=== PATIENT | male | born 1950 | race Caucasian/White ===

== ENCOUNTER 2020-08-25 11:53 | Inpatient (IN) | payer BC ==
[~2020-08-25] VITALS: Ht 182.9 cm; Wt 78.0 kg
--- NOTE | ~2020-08-25 | EMS ---
[address] [address] EMS Patient Care Report Name: EUGENIA AYON Room #: 447-P ADM IN M.R.#: [id number] Admission: 08/25/20 Attend Phys: Alexander Delgado MD Discharge: Date of : 46 Report #: [id number] THIS REPORT FOR: //name// Report Transmitted: 08/25/2020 18:56 EMS Care Summary [place], [place]/[facility] Incident [id number] @ 08/25/2020 11:26 Incident Location [address] [place], [place] [address] Patient EUGENIA AYON Male, 69 Years 1950 Patient Address [address] [place] [address] Patient History Diabetes,Hypertension (HTN),Hyperlipidemia,Emphysema,Sepsis,Sleep Apnea,Cellulitis, Patient Allergies No known allergies, Patient Medications Clopidogrel, Atorvastatin, Acetaminophen, Enoxaparin, Trulicity, Losartan, Senna, Humalog, Insulin, Metformin, Browder, Chief Complaint WOUND INFECTION Disposition Transported No Lights/[place] Dispatch Reason Sick Person Transported To [facility] Narrative M36 DISPATCHED ON A SICK PERSON. M36 ARRIVED TO SNF TO FIND PT SEATED [address] [address] EMS Patient Care Report Name: EUGENIA AYON Room #: 447-P ADM IN M.Shari.#: [id number] Admission: 08/25/20 Attend Phys: Alexander Delgado MD Discharge: Date of : 46 Report #: [id number] IN RECLINER IN ROOM WITH PHYSICAL RN CASE MANAGEMENT AT PT SIDE. PT STATED WOUND INFECTION CHIEF COMPLAINT. [place] STAFF STATED PT SEEN BY WOUND DOCTOR THIS MORNING AND "BEING SENT OUT FOR WOUND DEBRIDEMENT." PT ASSISTED TO STAND AND PIVOT TO STRETCHER. PT SECURED WITH SEATBELTS. PT DENIED N/V/D, SHORTNESS OF BREATH, FEVER AND COUGH. PT STATED "PAIN IS AT A ZERO RIGHT NOW, BUT WHEN DOCTOR MESSES WITH IT, THE PAIN IS VERY HIGH." PT VS MONITORED EN ROUTE. PT REPORT GIVEN. PT SCOOTED SELF ONTO HOSPITAL BED. PT CARE AND BELONGINGS TRANSFERRED TO ER STAFF AT [facility] WITHOUT INCIDENT. M36 PLACED BACK IN SERVICE. Initial Vitals @11:44P: 96,R: 18,BP: 133/67,Pain: 0/10,GCS: 15,CO: 2,SpO2: 98,Revised Trauma: 12, @11:47P: 96,R: 18,BP: 122/74,Pain: 0/10,GCS: 15,SpO2: 99,Revised Trauma: 12, Assessments @11:39MENTAL:Person Oriented,Time Oriented,Place Oriented,Event Oriented,SKIN:HEENT:LUNG SOUNDS:ABDOMEN:PELVIS//GI:EXTREMITIES:Left Leg: Edema,Left Leg: Other,PULSE:Radial: 2+ Normal,NEURO:Other, Impression Skin infection Procedures @11:39ALS AssessmentResponse: UnchangedSucceeded Timeline 11:25,Call Received 11:25,Dispatch Notified 11:26,Dispatched 11:27,En Route 11:36,On Scene 11:38,At Patient 11:39,ALS Assessment,Response: UnchangedSucceeded, 11:44,BP: 133/67 M,PULSE: 96,RR: 18 R,SPO2: 98 Ox,ETCO2: ,BG: ,PAIN: 0,GCS: 15, 11:46,Depart Scene 11:47,BP: 122/74 M,PULSE: 96,RR: 18 R,SPO2: 99 Ox,ETCO2: ,BG: ,PAIN: 0,GCS: 15, 11:48,At Destination 12:03,Call Closed Disclaimer v1.1 Copyright 2020 [employer] This EMS Care Summary contains data elements from the applicable legal record (which may be displayed differently). It is designed to provide pertinent information for the following purposes: continuity of care, clinical quality, [address] [address] EMS Patient Care Report Name: EUGENIA AYON Room #: 447-P ADM IN [facility].#: [id number] Admission: 08/25/20 Attend Phys: Alexander Delgado MD Discharge: Date of : 46 Report #: [id number] and state data reporting. The complete legal record is available to ED staff and administrators of the receiving hospital in [employer] Patient Tracker. All data is provided "as is."
[2020-08-25 11:54] VITALS: BP 155/54
[2020-08-25 12:32] LABS: ABSOLUTE NEUTROPHILS 6.4 thou/uL (1.4-8.2); BASOPHILS 0.7 % (0.0-2.0); EOSINOPHILS 1.2 % (0.0-3.0); HEMATOCRIT 37.2 % (42.0-52.0); HEMOGLOBIN 12.3 gm/dL (14.0-18.0); LYMPHOCYTES 13.9 % (24.0-44.0); MCH 31.9 pg (26.0-34.0); MCV 96.6 fL (80.0-100.0); MONOCYTES 6.1 % (1.0-8.0); PLATELET COUNT 398 thou/uL (150-400); POLYS 78.1 % (36.0-66.0); RBC 3.85 mil/uL (4.50-6.00); RDW 15.8 % (10.5-14.5); WBC 8.2 thou/uL (4.0-11.0)
[2020-08-25 12:36] LABS: CALCIUM 8.6 mg/dL (8.5-10.1); CREATININE 0.9 mg/dL (0.7-1.3); POTASSIUM 3.9 mmol/L (3.5-5.1)
[2020-08-25 12:43] LABS: ALBUMIN 2.6 g/dL (3.4-5.0); TOTAL BILIRUBIN 0.4 mg/dL (0.2-1.0)
[2020-08-25 14:54] VITALS: BP 134/75
--- NOTE | 2020-08-25 15:00 | NUR ---
REPORT ATTEMPTED. NURSE UNAVAILABLE
[2020-08-25 15:20] VITALS: BP 129/73
--- NOTE | 2020-08-25 16:26 | EKG ---
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
--- NOTE | 2020-08-25 18:51 | NUR ---
ASSUMED CARE OF PT AT 1555 THIS AFTERNOON FROM THE ER. PT WAS ADMITTED FOR DEBRISMENT OF THE BIG TOE AND HJEAL OF THE RIGHT FOOT. PT IS A/OX3 SLIGHTLY CONFUSED AND HAS SPEACH ESPHAGIA. IV IN RIGHT FA WITH VANCO RUNNING AT 250ML/HR. DARK AREAS NOTED ON LARGE TOE AND EXTERIOR HEAL. OTHERWISE SKIN IS INTACT, W/D/P CR<3SEC. ASSESSMENT OTHERWISE UNREMARKABLE. CALL LIGHT AND OTHER NEEDS PLACED WITHIN REACH,.
[2020-08-25 20:11] VITALS: BP 147/82
--- NOTE | 2020-08-26 05:24 | NUR ---
ASSUMED PT CARE AT 1900.ADMISSION ASSESSMNET COMPLETED.PT WITH LANCE HEEL WOUND,R GREAT TOE WOUND AND SUTURES TO HIS L PLANTAR FOOT.COVID NEGATIVE.PT CONT ON IV ABX.PT ALERT,CONFUSED AND COPERATIVE.URINAL AT BEDSIDE.REDNESS TO BUTTOCK.PT AHPASIC,NEEDS EXTRA TIME TO GET HIS WORDS OUT.CALL LIGHT WITHIN REACH.
[2020-08-26 07:30] VITALS: BP 157/93
--- NOTE | 2020-08-26 09:03 | NUR ---
ASSESSMENT: CM REVIEWED CHART AND SPOKE WITH PATIENT AT THE BEDSIDE. PT IS ADMITTED DUE TO FOOT WOUND. PT IS FROM [facility] AND WAS BEING SEEN BY WOUND CARE. 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 PT IS NOW ADMITTED DUE TO CONCERNS OF ULCERATON OF HEEL AND POSSIBLE CELLULITIS. PT IS BEING SEEN BY IR AND RECOMMENDING ANGIOGRAM. CM FAXED UPDATED CLINICAL TO [facility] AND UPDATED LIASADA PRICE. CM ALSO SPOKE WITH PATIENTS SISTER GAVI[place]. SHE REPORTS PT DOES NOT CURRENTLY HAVE A DPOA. PT IS CURRENTLY ON IV ANBX AND WOUND CARE HAS BEEN CONSULTED WELL GENERAL SURGERY. CM WILL CONTINUE TO FOLLOW TO ASSIST NEEDED.
--- NOTE | 2020-08-26 14:02 | NUR ---
Assumed pt care at 7am.Pt in bed resting. Assessment completed.vss.Pt wanted to eat and drink but has to be npo for procedure scheduled for this afternoon. Light breakfast given. Received call from pt family and updates given.At 1400, pt left per bed to radiology for arteriogram and will possibly transfer to ccu after procedure.
[2020-08-26 16:51] VITALS: BP 137/74
--- NOTE | 2020-08-26 17:13 | NUR ---
PT ARRIVED ON UNIT AT 1700, PT IS DROWSY FROM SURGERY AND RESTING COMFORTABLY
[2020-08-26 19:00] VITALS: BP 161/97
[2020-08-26 19:28] VITALS: BP 151/94
[2020-08-26 19:30] VITALS: BP 146/85
[2020-08-26] MEDS ORDERED: COZAAR 50 MG TA50 MG PO (22:51)
[2020-08-26] MEDS ORDERED: PLAVIX 75 MG TA75 MG PO (22:52)
[2020-08-26] MEDS ORDERED: ATORVASTATIN CA80 MG PO (22:52)
[2020-08-26] MEDS ORDERED: TRULICITY1.5 MG/0.5 SUBQ (22:54)
[2020-08-26] MEDS ORDERED: METFORMIN HCL500 M3 PO (22:56)
[2020-08-26] MEDS ORDERED: JARDIANCE25 MG PO (22:59)
[2020-08-26] MEDS ORDERED: TYLENOL325 M1 PO (23:04)
[2020-08-26] MEDS ORDERED: HYDROCODON-ACE1 EAC7 PO (23:05)
[2020-08-26] MEDS ORDERED: SENNA PLUS TAB1 EACH PO (23:06)
[2020-08-26] MEDS ORDERED: MIRALAX119 GM PO (23:06)
[2020-08-27] VITALS (7 sets, daily range): BP systolic 129–158; BP diastolic 71–90
--- NOTE | 2020-08-27 00:03 | NUR ---
ASSUMED PT CARE AT CHNAGE OF SHIFT, AWAKE, ALERT AND ORIENTED, SCREAMING IN PAIN TO THE R FOOT, TRAMADOL GIVEN WITH PAIN RELIEF, L GROIN SITE CDI, NO HEMATOMA, ASSESSMENTS CHARTED, BP ELEVATED BEGINNING OF SHIFT D/T PAIN, BP STABLE NOW, OTHER VSS, NO NEEDS AT THIS TIME WILL CONT TO MONITOR AND FOLLOW POC
--- NOTE | 2020-08-27 14:30 | NUR ---
ASSESSMENT CHARTED. PT ALERT AND ORIENTED. PLEASANT AND COOPERATIVE WITH CARES. PT REPORT THAT HE HAD HIS CELLPHONE AND ELECTRIC SHAVER WHEN HE WAS IN [facility] BEFORE BEING TRANSFERED TO ROOM 208. [place] HEAD OF QUALITY REPORTED THAT THEY LOOKED IN THE ROOM FOR THE TWO ITEMS AND COULD NOT FIND IT. SECURITY, 2 [place] [employer] AND SAFETY MANAGER, RUG DYER HELPER, AND CUSTOMER ACCOUNT EXECUTIVE NOTIFIED. PT NPO AFTER MIDNIGHT FOR POSSIBLE CATH IN AM. PRN PAIN MED GIVEN WITH PATIAL RELIEF.
--- NOTE | 2020-08-27 15:05 | NUR ---
ON-GOING ASSESSMENT: CM REVIEWED CHART AND SPOKE WITH ATTENDING. PT IS TO HAVE REPEAT ANGIO TOMORROW WITH POSSIBLE STENT PLACEMENT. PT REMAINS ON IV ANBX. 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 CM WILL CONTINUE TO FOLLOW TO ASSIST NEEDED.
[2020-08-28] VITALS (10 sets, daily range): BP systolic 133–152; BP diastolic 73–98
--- NOTE | 2020-08-28 04:35 | NUR ---
SLEPT MOST OF SHIFT. MOVES AROUND IN BED BYSELF. DENIES COMPLAINTS OF PAIN OR SHORTNESS OF AIR. WORKING ON GOALS AND PLAN OF CARE FOR NOC. PROGRESSING TOWARDS GOALS FOR PROCEDURE THIS AM. MAINTAIN SAFE ENVIRONMENT. CONTINUE TO ASSES CLOSELY.
[2020-08-28 09:00] LABS: HEMATOCRIT 37.8 % (42.0-52.0); HEMOGLOBIN 12.7 gm/dL (14.0-18.0); MCH 32.2 pg (26.0-34.0); MCHC 33.5 g/dL (28.0-37.0); MCV 96.2 fL (80.0-100.0); RBC 3.93 mil/uL (4.50-6.00); RDW 15.9 % (10.5-14.5); WBC 9.1 thou/uL (4.0-11.0)
[2020-08-28 09:12] LABS: CALCIUM 8.6 mg/dL (8.5-10.1); CREATININE 0.7 mg/dL (0.7-1.3); POTASSIUM 4.1 mmol/L (3.5-5.1)
--- NOTE | 2020-08-28 17:08 | NUR ---
[facility] can accept the pt back and has ins auth for SNF stay. The pt has 9 days remaining with his [employer] plan. Should he be dc ready this weekend, their liason can be reached at [phone] to make the arrangements. He will need a chart copy and report called to [phone], fax #[phone].
--- NOTE | 2020-08-28 18:02 | NUR ---
ASSESSMENT CHARTED. PLEASANT AND COOPERATIVE WITH CARES. HAD ANGIOGRAM AND STENT PLACED TODAY. PRN PAIN MED GIVEN WITH PARTIAL RELIEF. RIGHT GROIN INCISION C/D/I. NO HEMATOMA NOTED. SISTR UPDATED ON PT'S PROGRESS. NO CONCERNS AT THIS TIME.
[2020-08-29 00:01] VITALS: BP 150/81
--- NOTE | 2020-08-29 04:01 | NUR ---
SLEPT MOST OF SHIFT. POST CATH BILATERAL DRESSINGS C/D/I, NO HEMOTOMA OR BLEEDING. WORKING ON GOALS AND PLAN OF CARE FOR NOC. DENIES COMPLAINTS OF PAIN AT THIS TIME. CONTINUE TO ASSES CLOSELY.
[2020-08-29 04:12] VITALS: BP 139/75
[2020-08-29 04:56] LABS: HEMATOCRIT 37.2 % (42.0-52.0); HEMOGLOBIN 12.5 gm/dL (14.0-18.0); MCH 32.3 pg (26.0-34.0); MCHC 33.5 g/dL (28.0-37.0); MCV 96.6 fL (80.0-100.0); RBC 3.85 mil/uL (4.50-6.00); RDW 16.4 % (10.5-14.5); WBC 10.9 thou/uL (4.0-11.0)
[2020-08-29 04:59] LABS: CALCIUM 8.2 mg/dL (8.5-10.1); CREATININE 0.7 mg/dL (0.7-1.3); POTASSIUM 4.5 mmol/L (3.5-5.1)
[2020-08-29 07:50] VITALS: BP 141/77
[2020-08-29 12:00] VITALS: BP 147/68
[2020-08-29] MEDS ORDERED: BAYER CHEWABLE81 MG PO (12:34)
[2020-08-29] MEDS ORDERED: BACTRIM DS TAB1 EAC1 PO (12:34)
[2020-08-29] MEDS ORDERED: TRAMADOL 50 MG50 MG PO (12:34)
--- NOTE | 2020-08-29 14:01 | NUR ---
ASSUMED CARE SHIFT CHANGE. ASSESSMENTS CHARTED.MEDS GIVEN. VSS. DENIES PAIN, NO CP/SOB. WOUND CARE COMPLETE PER ORDERS. PT UP WIHT PHYS THERAPY TOLERATING WELL. DC ORDERS. [facility] CONTACTED. [facility] FAXED. TRANSPORT TIME RECEIVED. PT TO DC TO [facility] LATER THIS AFTERNOON. REPORT PASSED ONTO REBEKAH RUVALCABA.
--- NOTE | 2020-08-29 15:05 | NUR ---
RECEIVED PT FROM FELLOW NURSE AT 1400. PT IS AXOX4, WITH EXPRESSIVE APHASIA. VSS, AFEBRILE, SR BBB ON MONITOR. PT IS TO TRANSFER TO [facility]. GAVE REPORT TO REBEKAH MACHADO. RX VANCO CURRENTLY GOING AT 168ML/HR. AWAITING PT TRANSPORT TO [facility]. FALL PRECAUTIONS IN PLACE. NO CONCERNS AT THIS TIME.
[2020-08-29 15:35] VITALS: BP 125/60
== END 2020-08-29 15:52 | DRG 271 ==
LOC: ER 11:53 → 4S 13:48 → 2N 13:48 → EROBS 13:48 → 4S 15:29 → 2N 08-26 12:25 → 4S 08-26 13:13 → 2N 08-26 16:58
PROVIDERS: Nurse Practitioner; Physician Assistant; ADMIT Internal Medicine; ATTEND Internal Medicine
DX: E11.51 Type 2 diabetes mellitus with diabetic peripheral angiopathy without gangrene (principal); E44.0 Moderate protein-calorie malnutrition; G47.33 Obstructive sleep apnea (adult) (pediatric); M19.90 Unspecified osteoarthritis, unspecified site; S91.302A Unspecified open wound, left foot, initial encounter; R53.81 Other malaise; L89.610 Pressure ulcer of right heel, unstageable; L97.519 Non-pressure chronic ulcer of other part of right foot with unspecified severity; L89.620 Pressure ulcer of left heel, unstageable; Z20.822 Contact with and (suspected) exposure to COVID-19; I10 Essential (primary) hypertension; Z68.23 Body mass index [BMI] 23.0-23.9, adult; Z89.422 Acquired absence of other left toe(s)
CPT/HCPCS: 10081; 10195; 62110; 62900; 70005